=== PATIENT | female | born 1955 | race Caucasian/White ===

== ENCOUNTER → 2016-05-27 | Outpatient (CLI) | payer MEDICARE, MEDICAID ==
[2016-05-27 12:44] LABS: ALBUMIN 3.1 GM/DL (3.2-5.2); ALBUMIN/GLOBULIN RATIO 0.7 (1.00-1.93); BILIRUBIN,DIRECT 0.1 MG/DL (0.0-0.2); BILIRUBIN,TOTAL 0.4 MG/DL (0.2-1.0); TOTAL PROTEIN 7.5 GM/DL (6.4-8.2)
== END ==
LOC: M LAB 10:14
PROVIDERS: ATTEND Nurse Practitioner
DX: G40.909 Epilepsy, unspecified, not intractable, without status epilepticus (principal)

== ENCOUNTER → 2016-07-31 | Outpatient (CLI) | payer MEDICARE, MEDICAID ==
[~2016-07-31] MED LIST: AQUAOIN2 TOP; ATIV1TAB10 PO; BLISOIN5 TOP; CETACRE4 TOP; DIAZ2.5G PR; E-Z PAQUE 60% w/v SUSP 355ML BOTTLE As Ordered ONE; E-Z-HD 98% w/w 340GM SUSP BTL As Ordered ONE; ERYT5OPO OU; LAMI1TAB7 PO; LAMI25TA PO; LEVO88TA3 PO; MELA1LIQ2 PO; MELA1TAB PO; MULT1CHW39 PO; NITR100C2 PO; NYST100024 TOP; SENN8.6T17 PO; SILV1CRE19 TOP; VITMTA PO; ZONI100C2 PO; ZONI25CA2 PO
--- NOTE | 2016-07-31 13:35 | REP ---
ESOPHAGRAM: The procedure was performed under the direct supervision of Dr. Perdomo. The images were reviewed with Dr. Perdomo. Liquid barium was administered in the right lateral recumbent position. The exam is limited due to patient condition. The cervical esophagus is not well visualized. However, the patient was able to readily swallow the contrast. Esophageal transport is prompt and efficient and there is no evidence of esophagitis, stricture, mucosal ring or hiatal hernia. There is no evidence of obstruction. Gastroesophageal reflux is not demonstrated on this examination. IMPRESSION: The exam is limited due patient condition, however, there is free flow of contrast into the stomach. There is no evidence of stricture or obstruction. These findings were relayed to Dr. Brenner at the time of the examination. 58 seconds of fluoroscopy time was utilized for this procedure. Reviewed by HAYLEY Kennedy 07/31/2016 04:27 PEdited and Signed by Jean Perdomo MD 07/31/2016 04:49 P
== END ==
LOC: M RAD 10:26
PROVIDERS: ATTEND Otolaryngology
DX: R13.10 Dysphagia, unspecified (principal)

== ENCOUNTER 2016-08-04 06:12 | Emergency (ER) | payer MEDICARE, MEDICAID ==
[2016-08-04 06:39] LABS: BASO # 0.1 K/mm3 (0.0-0.2); BASO % 1.5 % (0.0-1.0); EOS # 0.2 K/mm3 (0.0-0.50); EOS % 5.1 % (0.0-3.0); LARGE UNSTAINED CELL # 0.2 K/mm3 (0.0-0.4); LARGE UNSTAINED CELL % 3.5 % (0.0-4.0); LYMPH # 1.5 K/mm3 (1.5-4.5); LYMPH % 34.3 % (24.0-44.0); MEAN CORPUSCULAR HEMOGLOBIN 34.4 pg (27.0-33.0); MEAN CORPUSCULAR HGB CONC 33.5 g/dl (32.0-36.5); MEAN CORPUSCULAR VOLUME 102.8 fl (80.0-96.0); MONO # 0.3 K/mm3 (0.0-0.8); MONO % 5.7 % (0.0-5.0); NEUTROPHILS # 2.2 K/mm3 (1.8-7.7); NEUTROPHILS % 49.8 % (36.0-66.0); PLATELET COUNT, AUTOMATED 236 k/mm3 (150-450); RED CELL DISTRIBUTION WIDTH 13.2 % (11.5-14.5); WHITE BLOOD COUNT 4.5 K/mm3 (4.0-10.0)
[2016-08-04] MEDS ORDERED: NS 1,000 ML IV ONE ×2 (06:45→07:15)
[2016-08-04 06:49] LABS: ABG BASE EXCESS -1.3 (-2.0-2.0); ABG HCO3 22.3 MEQ/L (22.0-26.0); ABG PARTIAL PRESSURE CO2 34.4 mmHg (35.0-45.0); ABG PARTIAL PRESSURE O2 86.1 mmHg (75.0-100.0); ABG STANDARD HCO3 23.4 MEQ/L (22.0-26.0); ABG TOTAL CO2 23.3 MEQ/L (22.0-29.0); ABG pH (ARTERIAL) 7.429 UNITS (7.350-7.450)
[2016-08-04] MEDS ORDERED: ZONI100C2 PO (06:58)
[2016-08-04] MEDS ORDERED: ATIV1TAB10 PO ×2 (06:58)
[2016-08-04] MEDS ORDERED: LEVO88TA3 PO (06:58)
[2016-08-04] MEDS ORDERED: LAMI25TA PO (06:58)
[2016-08-04] MEDS ORDERED: MULT1CHW39 PO (06:58)
[2016-08-04] MEDS ORDERED: MELA1LIQ2 PO (06:58)
[2016-08-04] MEDS ORDERED: LAMI1TAB7 PO (06:58)
[2016-08-04 07:01] LABS: ALBUMIN 2.8 GM/DL (3.2-5.2); ALBUMIN/GLOBULIN RATIO 0.67 (1.00-1.93); BILIRUBIN,DIRECT 0.2 MG/DL (0.0-0.2); BILIRUBIN,TOTAL 0.4 MG/DL (0.2-1.0); CALCIUM LEVEL 8.4 MG/DL (8.5-10.1); CREATININE FOR GFR 1.35 MG/DL (0.55-1.02); GLOMERULAR FILTRATION RATE 42.7 (>51); POTASSIUM SERUM 4.7 MEQ/L (3.5-5.1)
--- NOTE | 2016-08-04 07:10 | REPUSA ---
CLINICAL HISTORY: Altered mental status. TECHNIQUE: Multiple axial CT images were obtained through the brain without IV contrast material. COMMENTS: Comparison to the prior exam performed on 07/12/2012. There is normal configuration of sella turcica. There are no intra or extra-axial collections. There is no mass effect or midline shift. There is no evidence of hematoma formation. No hydrocephalus is p resent. The ventricles are symmetrical. No abnormal calcifications are present. There is diffuse age-appropriate cerebellar and cerebral atrophy with proportionally dilated ventricl es and cortical sulci. There are bilateral periventricular and subcortical white matter hypolucencies compatible with mild c hronic microvascular disease. Otherwise, no significant focal abnormalities are seen either in the posterior fossa or supratentoria l compartment. Small effusion in the right medial cavity and mastoid air cells. IMPRESSION: 1. Age-appropriate cerebellar and cerebral atrophy. 2. Mild chronic microvascular disease. 3. No evidence of acute intracranial pathology. Thank you for your kind referral of this patient.
[2016-08-04] MEDS ORDERED: LORazepam 2 MG/ML VIAL (J2060) IV STA (07:45)
--- NOTE | 2016-08-04 07:46 | REP ---
Clinical: Altered mental status . Comparison: 05/07/2015 . Findings: The mediastinum and cardiac silhouette are stable and within normal limits for portable technique. The lung flores demonstrate chronic changes without acute consolidation, effusion, or pneumothorax. Skeletal structures are intact. Impression: Chronic changes. No acute cardiopulmonary process. The Signed by Mele Layne MD 08/04/2016 07:37 A
[2016-08-04 08:20] VITALS: BP 128/83
[2016-08-04] MEDS ORDERED: ZONI25CA2 PO (08:28)
[2016-08-04] MEDS ORDERED: VITMTA PO (08:28)
[2016-08-04] MEDS ORDERED: DIAZ2.5G PR (08:28)
[2016-08-04] MEDS ORDERED: BLISOIN5 TOP (08:28)
[2016-08-04] MEDS ORDERED: SILV1CRE19 TOP (08:28)
[2016-08-04] MEDS ORDERED: CETACRE4 TOP (08:28)
[2016-08-04] MEDS ORDERED: NYST100024 TOP (08:28)
[2016-08-04] MEDS ORDERED: MELA1TAB PO (08:28)
[2016-08-04] MEDS ORDERED: AQUAOIN2 TOP (08:28)
[2016-08-04] MEDS ORDERED: SENN8.6T17 PO (08:28)
[2016-08-04] MEDS ORDERED: ERYT5OPO OU (08:34)
[2016-08-04 08:37] LABS: METHADONE URINE NEGATIVE (NEGATIVE)
[2016-08-04] MEDS ORDERED: NITROFURANTOIN 50 MG CAP PO ONE (08:45)
[2016-08-04] MEDS ORDERED: NITR100C2 PO (09:08)
--- NOTE | 2016-08-04 10:40 | ECGEPIP ---
Stationary ECG Study [facility] - ED Test Date: 2016-08-04 Pat Name: KAROLINE FRANKLIN Department: Room: - Gender: F Fire Protection Engineer: UriosteguiB: 1955 Requested By: LITO Ware Order Number: [id number] Reading MD: Andrea Lopez Measurements Intervals [place] Rate: 65 P: 44 DC: 201 QRS: -50 QRSD: 93 T: 114 QT: 409 QTc: 427 Interpretive Statements SINUS RHYTHM LAD PATTERN CONSISTENT WITH PULMONARY DISEASE LEFT ANTERIOR FASCICULAR BLOCK PRWP NSTTW ABNORMALITIES SIMILAR TO 11/12/11 Electronically Signed On 08-04-2016 10:40:24 EDT by Andrea Lopez
== END 2016-08-04 09:47 | disposition home or self-care (01) ==
LOC: EDBD 06:12 → M ED 07:45
DX: R41.82 Altered mental status, unspecified (principal); N39.0 Urinary tract infection, site not specified; I44.4 Left anterior fascicular block; R94.31 Abnormal electrocardiogram [ECG] [EKG]; Q90.9 Down syndrome, unspecified; Z79.899 Other long term (current) drug therapy; Z88.8 Allergy status to other drugs, medicaments and biological substances; Z88.1 Allergy status to other antibiotic agents
CPT/HCPCS: 36415; 36600; 70450; 71010; 80048; 80076; 80175; 80306; 81001; 82550; 82553; 82803; 83605; 84443; 84484; 85025; 87040; 87088; 87186; 93005; 93041; 96361; 96374; 99285; J2060

== ENCOUNTER 2016-10-12 07:52 | Inpatient (IN) | payer MEDICARE, MEDICAID ==
[~2016-10-12] VITALS: Ht 157.5 cm; Wt 56.0 kg
[2016-10-12] VITALS (10 sets, daily range): BP systolic 56–123; BP diastolic 28–85
[~2016-10-12 07:52] MED LIST changes: -E-Z PAQUE 60% w/v SUSP 355ML BOTTLE As Ordered ONE; -E-Z-HD 98% w/w 340GM SUSP BTL As Ordered ONE
[2016-10-12] MEDS ORDERED: SUCCINYLCHOLINE INJ 200 MG/10 ML VIAL (J0330) IV STA (08:27)
[2016-10-12] MEDS ORDERED: ETOMIDATE INJ 20MG/10ML VIAL IV STA (08:27)
[2016-10-12] MEDS ORDERED: PROPOFOL 1,000 MG in APPROPRIATE DILUENT 1 EA IV SCH (08:30)
[2016-10-12] MEDS ORDERED: NS 1,000 ML IV ONE ×2 (08:30→13:45)
--- NOTE | 2016-10-12 08:36 | ECGEPIP ---
Stationary ECG Study [facility] - ED Test Date: 2016-10-12 Pat Name: KAROLINE FRANKLIN Department: Room: - Gender: F Retirement Administrator: : [id number] Requested By: PETE Christianson Order Number: [id number] Reading MD: Shelly Pena Measurements Intervals [place] Rate: 67 P: 68 ME: 207 QRS: -32 QRSD: 92 T: 102 QT: 404 QTc: 428 Interpretive Statements SINUS RHYTHM MARKED LEFT AXIS DEVIATION PATTERN CONSISTENT WITH PULMONARY DISEASE ST DEVIATION AND MODERATE T-WAVE ABNORMALITY, CONSIDER LATERAL ISCHEMIA Electronically Signed On 10-12-2016 8:36:46 EDT by Shelly Pena
--- NOTE | 2016-10-12 08:41 | REP ---
PORTABLE CHEST X-RAY: Single view. HISTORY: Evaluate endotracheal tube. FINDINGS: An endotracheal tube has been inserted into position at the level of the any. This should be withdrawn 2-3 cm. The lungs are symmetrically aerated however. Pleural angles are sharp. Heart is not enlarged. There is moderate gaseous distension of the stomach. Interstitial markings are prominent in the right base medially question right base infiltrate. IMPRESSION: ET tube just barely above the any. Recommend withdrawal 2-3 cm. Gastric distension. Question right base infiltrate. Signed by Jesus Gonsales MD 10/12/2016 12:57 P
[2016-10-12] MEDS ORDERED: PROPOFOL 1,000 MG/100 ML VIAL As Ordered ONE (08:43)
[2016-10-12 08:47] LABS: ABG BASE EXCESS -8.9 (-2.0-2.0); ABG HCO3 17.2 MEQ/L (22.0-26.0); ABG PARTIAL PRESSURE CO2 37.7 mmHg (35.0-45.0); ABG PARTIAL PRESSURE O2 60.4 mmHg (75.0-100.0); ABG STANDARD HCO3 17.2 MEQ/L (22.0-26.0); ABG TOTAL CO2 18.3 MEQ/L (23.0-31.0); ABG pH (ARTERIAL) 7.276 UNITS (7.350-7.450)
[2016-10-12 08:49] LABS: ALBUMIN 2.4 GM/DL (3.2-5.2); ALBUMIN/GLOBULIN RATIO 0.55 (1.00-1.93); ALKALINE PHOSPHATASE 87 U/L (45-117); ALT/SGPT 18 U/L (12-78); ANION GAP 7 MEQ/L (8-16); AST/SGOT 17 U/L (15-37); BILIRUBIN,DIRECT < 0.1 MG/DL (0.0-0.2); BILIRUBIN,TOTAL 0.2 MG/DL (0.2-1.0); BLOOD UREA NITROGEN 17 MG/DL (7-18); CALCIUM LEVEL 7.6 MG/DL (8.8-10.2); CARBON DIOXIDE LEVEL 23 MEQ/L (21-32); CHLORIDE LEVEL 112 MEQ/L (98-107); CREATININE FOR GFR 1.25 MG/DL (0.55-1.02); FREE T4 1.05 NG/DL (0.76-1.46); GLOMERULAR FILTRATION RATE 46.5 (>45); GLUCOSE, FASTING 140 MG/DL (80-110); POTASSIUM SERUM 4.3 MEQ/L (3.5-5.1); SODIUM LEVEL 142 MEQ/L (136-145); TOTAL PROTEIN 6.8 GM/DL (6.4-8.2)
[2016-10-12 08:54] LABS: INR 1.11
[2016-10-12] MEDS ORDERED: PIPERACILLIN/TAZOBACTAM SOD 3.375 GM in D5W MINI-BAG PLUS 50 ML IV ONE (09:00)
[2016-10-12 09:06] LABS: MEAN CORPUSCULAR HEMOGLOBIN 35.1 pg (27.0-33.0); MEAN CORPUSCULAR HGB CONC 32.9 g/dl (32.0-36.5); MEAN CORPUSCULAR VOLUME 106.6 fl (80.0-96.0); PLATELET COUNT, AUTOMATED 261 k/mm3 (150-450); RED CELL DISTRIBUTION WIDTH 13.4 % (11.5-14.5); WHITE BLOOD COUNT 8.2 K/mm3 (4.0-10.0)
[2016-10-12] MEDS ORDERED: REFRIGERATOR IV KEYS XX PRN (09:15)
[2016-10-12] MEDS ORDERED: MORPHINE 2 MG/ML 1ML SYRINGE IV PRN (09:15)
[2016-10-12] MEDS ORDERED: CETALOT8 TOP (09:21)
[2016-10-12 09:32] LABS: BASOPHILS 2 % (0-4); EOSINOPHILS 3 % (0-5)
[2016-10-12] MEDS ORDERED: CLON0.5T PO (09:34)
[2016-10-12] MEDS: MIDAZOLAM HCL 100 MG in D5W 80 ML IV SCH (10:00)
--- NOTE | 2016-10-12 10:02 | HPE ---
DATE OF ADMISSION: 10/12/2016 CRITICAL CARE HISTORY AND PHYSICAL CRITICAL CARE TIME: 1 hour, this excludes all procedures. HISTORY OF PRESENT ILLNESS: Danii is a resident of [facility] ([facility]) with mental retardation (MR) who presented to the emergency room after a possible aspiration event. Apparently, she had increased gurgling during eating this morning. She became unresponsive in the shower. On arrival of EMS, she was hypoxic down to 60% oxygen saturation. Attempts were made at noninvasive ventilation; however, the patient was unable to maintain an adequate oxygen saturation for any period of time. Therefore, intubation was performed by the emergency room physician on arrival. The patient has not had any history of recurrent pneumonias. Three months ago, she had a urinary tract infection were she presented with decreased responsiveness. She has a known seizure disorder. No other history is available at this time around the episode. Apparently, yesterday she was in her usual state of health. PAST MEDICAL HISTORY (significant for): 1. Seizure disorder. 2. Hypothyroidism. 3. No history of diabetes. 4. No history of recurrent aspirations. RAHUL MEDICATIONS (include): Aquaphor ointment topically twice a day - Blistex ointment topically four times a day - Cetaphil cream topically as directed - diazepam 5 mg MT as needed - Ativan 0.25 mg by mouth at bedtime and 0.5 mg as needed - Lamictal 100 mg by mouth at bedtime and 75 mg by mouth every morning - levothyroxine 88 mcg every morning - erythromycin eye drops as directed - melatonin 1 mg by mouth at bedtime - multivitamin 1 tablet by mouth daily - nitrofurantoin 100 mg by mouth every 12 hours - Nystatin powder as directed - Silvadene topically twice a day - senna 1 tablet by mouth daily - zonisamide 200 mg by mouth at bedtime and 50 mg in the morning ALLERGIES: - AMINOGLYCOSIDES - CLOTRIMAZOLE - HYDROCORTISONE - NEOMYCIN - POLYMYXIN B SOCIAL HISTORY: Resident of [facility]. Healthcare proxy sisters, Candace and Kit, a patient's bedside. Requesting no further intervention such as central lines. I have consulted social work. REVIEW OF SYSTEMS: Unobtainable. PHYSICAL EXAMINATION: Temperature is 97.6, pulse is 66, respiratory rate is 14, blood pressure is 120/67 with mean arterial pressure 84, and with oxygen saturation of 98% on 0.50 FIO2. General: The patient is sedate on mechanical ventilation. Pupils are pinpoint, but reactive. Mucous membranes are moist without lesions. Large 8.[address]. OG tube in place. The patient is hirsute. Neck: Supple. No tracheal deviation. Lymphs: No cervical, supraclavicular or axillary adenopathy. Cardiac: Distant S1, S2 with occasional ectopy. PMI is nondisplaced. I do not auscultate any abdominal bruits. Peripheral pulses are palpable at radial locations and symmetric. Pulmonary: Fairly clear to auscultation without rales, rhonchi or wheezes. No dullness to percussion. Chest elevates symmetric. No accessory muscle use. Abdomen: Soft, nontender, with no discernible hepatosplenomegaly. No masses or hernia. Extremities: No cyanosis, clubbing or edema. Musculoskeletal: No obvious deformities other than what is expected for MR. She has significant muscle wasting. No evidence of fracture. Neurologic: No myoclonus. No evidence of seizure activity while on mechanical ventilation. LABORATORY EVALUATION: Shows a white blood cell count 8.2, hemoglobin 13.8, hematocrit of 42, and platelet count 261. Sodium is 142, potassium 4.3, chloride 112, bicarb 23, BUN of 17, creatinine 1.25, lactic acid is 2.7. Arterial blood gas shows a pH 7.28, pCO2 of 38, and pO2 of 60. Chest x-ray initially showed a right mainstem intubation and endotracheal tube was moved back, since that time an OG tube has been placed. There is some minimal right lower lobe infiltrate. No evidence of pneumothorax or airway obstruction. EKG shows no significant ST abnormality, sinus rhythm. Telemetry, however, shows sinus arrhythmia with frequent premature ventricular contractions (PVCs). IMPRESSIONS: 1. Acute hypoxic respiratory failure likely from aspiration event. Will remain on mechanical ventilation. Will attempt extubation in the morning. Will place on Zosyn due to the aspiration event and the evidence of lactic acidemia, although this could be simply related to her hypoxic event. Will continue to monitor for signs of sepsis; however, despite some hypotension in the emergency room the patient's family refused placement of a central line. I have changed her propofol to Versed to avoid hypotension and will supply the patient with IV fluids. Upon leaving the room, her mean arterial pressure was 70. 2. Hypothyroidism. Replace with her usual Synthroid 88 mcg. 3. History of seizure disorder. Will continue zonisamide and Lamictil. Monitor for seizure activity. The patient will be on Versed drip. 4. Renal insufficiency, mild in nature. Will continue to monitor. The patient has good urine output at this point in time. 5. Gastrointestinal (GI) prophylaxis with Protonix. 6. Deep vein thrombosis (DVT) prophylaxis with heparin. Critical care time as mentioned above, this excludes all procedures.
[2016-10-12 10:44] LABS: ABG BASE EXCESS -7.5 (-2.0-2.0); ABG HCO3 18.2 MEQ/L (22.0-26.0); ABG PARTIAL PRESSURE CO2 37.6 mmHg (35.0-45.0); ABG STANDARD HCO3 18.4 MEQ/L (22.0-26.0); ABG TOTAL CO2 19.3 MEQ/L (23.0-31.0); ABG pH (ARTERIAL) 7.302 UNITS (7.350-7.450)
[2016-10-12 11:03] LABS: MAGNESIUM LEVEL 2.4 MG/DL (1.8-2.4)
[2016-10-12] MEDS: CHLORHEXIDINE GLUCONATE 0.12 % 15ML UDC (PERIDEX ORAL RINSE) MT SCH ×2 (11:16→20:57)
[2016-10-12] MEDS: ENOXAPARIN 30 MG/0.3 ML SYR (J1650) SC SCH (11:17)
[2016-10-12] MEDS: NYSTATIN 100,000 UNITS/GM TOPICAL PWD 15 GM TOP SCH ×2 (11:17→20:58)
[2016-10-12] MEDS: PANTOPRAZOLE 40MG INJ (PROTONIX) (C9113) IV SCH (11:17)
[2016-10-12] MEDS: LEVOTHYROXINE 0.088 MG TAB (88 MCG) PO SCH (11:34)
[2016-10-12] MEDS ORDERED: SODIUM CHLORIDE 0.9% 1000 ML IV ONE (11:45)
[2016-10-12] MEDS: IPRATROPIUM 0.5MG/ALBUTEROL 2.5MG INH SOL UD 3ML (DUONEB)(J7620) NEB SCH ×3 (12:00→19:56)
[2016-10-12] MEDS: PIPERACILLIN/TAZOBACTAM SOD 3.375 GM in D5W MINI-BAG PLUS 50 ML IV SCH ×2 (16:14→20:58)
[2016-10-12] MEDS: ZONISAMIDE 100 MG CAP (ZONEGRAN) PO SCH (20:58)
[2016-10-12] MEDS: ZONISAMIDE 50 MG CAP (ZONEGRAN) PO SCH (20:58)
[2016-10-12] MEDS ORDERED: lamoTRIgine 100MG TAB PO SCH (21:00)
[2016-10-13] VITALS (40 sets, daily range): BP systolic 56–134; BP diastolic 32–72
[2016-10-13] MEDS ORDERED: SUCCINYLCHOLINE 100 MG/5 ML SYRINGE (J0330) ONE (00:34)
[2016-10-13] MEDS ORDERED: ETOMIDATE INJ 20MG/10ML VIAL ONE (00:34)
[2016-10-13] MEDS ORDERED: NS 1,000 ML IV ONE ×3 (02:00→04:30)
[2016-10-13] MEDS: PIPERACILLIN/TAZOBACTAM SOD 3.375 GM in D5W MINI-BAG PLUS 50 ML IV SCH ×4 (04:08→20:22)
[2016-10-13 06:07] LABS: ABG BASE EXCESS -7.6 (-2.0-2.0); ABG HCO3 15.8 MEQ/L (22.0-26.0); ABG PARTIAL PRESSURE CO2 26.9 mmHg (35.0-45.0); ABG PARTIAL PRESSURE O2 185.8 mmHg (75.0-100.0); ABG STANDARD HCO3 18.4 MEQ/L (22.0-26.0); ABG TOTAL CO2 16.7 MEQ/L (23.0-31.0); ABG pH (ARTERIAL) 7.388 UNITS (7.350-7.450)
[2016-10-13] MEDS: LEVOTHYROXINE 0.088 MG TAB (88 MCG) PO SCH (06:09)
[2016-10-13 06:23] LABS: MEAN CORPUSCULAR HEMOGLOBIN 35.1 pg (27.0-33.0); MEAN CORPUSCULAR HGB CONC 32.7 g/dl (32.0-36.5); MEAN CORPUSCULAR VOLUME 107.3 fl (80.0-96.0); RED CELL DISTRIBUTION WIDTH 13.2 % (11.5-14.5); WHITE BLOOD COUNT 12.2 K/mm3 (4.0-10.0)
[2016-10-13 06:44] LABS: ALBUMIN 1.6 GM/DL (3.2-5.2); ALBUMIN/GLOBULIN RATIO 0.48 (1.00-1.93); BILIRUBIN,TOTAL 0.7 MG/DL (0.2-1.0); CALCIUM LEVEL 6.8 MG/DL (8.8-10.2); CREATININE FOR GFR 1.25 MG/DL (0.55-1.02); GLOMERULAR FILTRATION RATE 46.5 (>45); POTASSIUM SERUM 3.9 MEQ/L (3.5-5.1); TOTAL PROTEIN 4.9 GM/DL (6.4-8.2)
[2016-10-13] MEDS: IPRATROPIUM 0.5MG/ALBUTEROL 2.5MG INH SOL UD 3ML (DUONEB)(J7620) NEB SCH ×4 (07:42→19:28)
--- NOTE | 2016-10-13 08:46 | REP ---
Portable chest x-ray: Single view. History: Respiratory failure. Comparison chest x-ray October 12, 2016. Findings: The patient is rotated quite a bit to the right for the current exposure. A nasogastric tube has been passed and is seen entering the left upper quadrant of the abdomen. The endotracheal tube is in good position at the level of the transverse aorta. EKG monitoring electrodes and oxygen delivery tubing are seen. There is evidence of an infiltrate perhaps with some atelectasis in the right middle lobe distribution. This is more prominent than on the earlier film. No pleural effusion or pneumothorax seen. Heart is not enlarged. There are also air bronchograms in the left base medially. Impression: Developing infiltrate possibly with atelectasis right middle lobe. Air bronchograms left base. Endotracheal tube in good position. NG tube enters left upper quadrant of the abdomen. Signed by Jesus Gonsales MD 10/13/2016 02:49 P
[2016-10-13] MEDS ORDERED: lamoTRIgine 25 MG TAB PO SCH (09:00)
[2016-10-13] MEDS: MIDAZOLAM HCL 100 MG in D5W 80 ML IV SCH (09:12)
[2016-10-13] MEDS: NYSTATIN 100,000 UNITS/GM TOPICAL PWD 15 GM TOP SCH ×2 (09:27→20:23)
[2016-10-13] MEDS: PANTOPRAZOLE 40MG INJ (PROTONIX) (C9113) IV SCH (09:27)
[2016-10-13] MEDS: ENOXAPARIN 30 MG/0.3 ML SYR (J1650) SC SCH (09:27)
[2016-10-13] MEDS: CHLORHEXIDINE GLUCONATE 0.12 % 15ML UDC (PERIDEX ORAL RINSE) MT SCH ×2 (09:28→20:21)
--- NOTE | 2016-10-13 10:42 | CCN ---
DATE: 10/13/2016 Critical care time was 1 hour. This excludes all procedures. I was called to the patient's bedside for persistent hypotension. She has received multiple normal saline boluses over the past 24 hours. She continues to be hypotensive despite this. Family has declined participating with our sepsis protocol. They do not want any central line placement, any vasopressor therapy, no escalation or resuscitation other than the IV antibiotics, fluids and a trial of mechanical ventilation. She remains on mechanical ventilation. This morning she has a worsening acidemia however, is oxygenating well at 99% on 0.70 FiO2. A discussion at bedside, it was deemed that the patient's family wanted to try a little longer to see if she recovers from this but do not want cardiopulmonary resuscitation (CPR), do not want any aggressive measures and they do not want a G-tube for artificial feeding. However, believe that it is okay to have temporary feeds through the orogastric (OG) tube to support the patient through this process. I believe the patient was septic with aspiration pneumonia. The patient continues to have adequate urine output. PHYSICAL EXAMINATION: Temperature is 99.1, pulse is 74, respiratory rate is 18, blood pressure is 96/56 with an oxygen saturation on 0.70 FiO2. General: The patient is sedated on mechanical ventilation. Has not yet had her sedation vacation this morning. Pupils are 4 mm but reactive to light. Mucous membranes are moist. Tongue is midline. Neck is supple. No tracheal deviation or mass. Endotracheal tube is in place. Breath sounds clear bilaterally. No rales, rhonchi or wheezes. No dullness to percussion. Cardiac: Distant S1, S2 without audible murmur, rub or gallop. No elevated JVP. No systemic edema. Abdomen: Soft, nontender, nondistended, no hepatosplenomegaly. No masses or hernia. Extremities: No cyanosis, clubbing or edema. Skin is pale. No rashes, jaundice or bruising. Chest x-ray this morning shows right middle lobe infiltrate. Endotracheal tube is in good position. OG tube does enter the left upper quadrant. There is significant curvature of the spine. No evidence of pneumothorax. No significant pleural effusion. There is some displacement of the cardiac silhouette with some rotation of the film. Laboratory evaluation shows a white blood cell count of 12.2, hemoglobin 11.4, hematocrit 34.8 with a platelet count of 202. Sodium is 147, potassium is 3.9, chloride 120, bicarb is down to 19, BUN is 16, creatinine is 1.25. Blood cultures times one, no growth but the second blood culture is pending. 1. Respiratory failure currently on mechanical ventilation. Arterial blood gas suggests compensated metabolic acidosis. Will continue mechanical ventilation until acidosis improves or her family feels that it is too prolonged. She will have a sedation vacation this morning. She is on ventilator associated pneumonia prevention. 2. Aspiration pneumonia with ongoing sepsis and hypotension. I recommended continuing IV fluids. She has good urine output with no change in her BUN and creatinine over the past 24 hours. Will accept a mean arterial pressure of 60 as long as her urine output remains greater than 15 mL an hour. 3. History of seizure disorder. Will continue Lamictal and zonisamide. 4. GI prophylaxis on Protonix. 5. Deep venous thrombosis (DVT) prophylaxis with heparin. 6. Nutrition: Will initiate low dose tube feeds with free water due to hypernatremia.
[2016-10-13] MEDS ORDERED: lamoTRIgine 100MG TAB PO ONE (20:00)
[2016-10-13] MEDS: ZONISAMIDE 50 MG CAP (ZONEGRAN) PO SCH ×2 (20:22→21:43)
[2016-10-13] MEDS: ZONISAMIDE 100 MG CAP (ZONEGRAN) PO SCH ×2 (20:22→21:43)
[2016-10-13] MEDS: LORazepam 2 MG/ML VIAL (J2060) IV PRN ×2 (20:44→21:59)
[2016-10-13] MEDS ORDERED: PROPOFOL 1,000 MG/100 ML VIAL As Ordered ONE (20:48)
[2016-10-13] MEDS ORDERED: PROPOFOL 1,000 MG in APPROPRIATE DILUENT 1 EA IV SCH (21:00)
[2016-10-13] MEDS ORDERED: levETIRAcetam INJection 500 MG in D5W MINI-BAG PLUS 100 ML IV SCH (21:00)
--- NOTE | 2016-10-13 21:41 | CCN ---
DATE: 10/13/2016 This is an additional hour of critical care after this morning's critical care. I was urgently called to the bedside of this patient for increased myoclonus. On my arrival, patient had full body myoclonus. This improved with the administration of Ativan. Patient has a known seizure disorder and has been having full body myoclonus with extension of the upper back, some eye rolling movements and, when I plantar flex her foot, she had continuous beats of myoclonus. She did have a period of anoxia prior to her arrival to the emergency room and therefore, I consulted neurology. Neurology suggests to do a CT scan of the head to look for anoxic brain injury. Will perform an electroencephalogram (EEG) tomorrow. Initially, recommended loading with Keppra; however, patient's family stated that she adversely reacts to this medication and refused the administration of Keppra. At this point in time, we will control seizure activity with benzodiazepines. Overall, this may be a additional poor prognostic sign. Seizure activity may be secondary to acute illness and infection, but may also be secondary to anoxic brain injury. According to the sister, the patient has had increased myoclonus over the past year. It seems to be progressive in nature. Will await the results of the CT scan. Critical care time as mentioned above. This excludes all procedures. I was at patient's bedside for over an hour.
[2016-10-13] MEDS: lamoTRIgine 100MG TAB PO SCH (21:43)
[2016-10-13] MEDS ORDERED: ISOVUE-370 76% 100ML VIAL (Q9967) As Ordered ONE (22:01)
--- NOTE | 2016-10-13 23:00 | REPUSA ---
CT of the head Clinical history: seizures. Protocol: Multiple axial CT images obtained with 5 mm slice thickness were obtained through the head before and after administration of contrast. Comparison: 08/04/2016. Findings: The ventricles and sulci are symmetric but severely dilated in size bilaterally. There are periventricular areas of low attenuation throughout the deep white matter. There is no evidence of ac artie hemorrhage or infarct. There is no midline shift, mass effect, or extra-axial fluid collection. T he osseous structures are unremarkable. The visualized paranasal sinuses and mastoid air cells are cl ear. There are no abnormal areas of enhancement. Impression: No acute hemorrhage or infarct. Findings are consistent with severe age-related atrophy a nd chronic small vessel ischemic disease. Overall, there is no significant interval change.
[2016-10-14] VITALS (26 sets, daily range): BP systolic 84–119; BP diastolic 47–66; O2SAT 96–97
[2016-10-14] MEDS: PIPERACILLIN/TAZOBACTAM SOD 3.375 GM in D5W MINI-BAG PLUS 50 ML IV SCH ×4 (02:12→21:45)
[2016-10-14] MEDS: MIDAZOLAM HCL 100 MG in D5W 80 ML IV SCH ×2 (02:12→13:00)
[2016-10-14 05:01] LABS: MEAN CORPUSCULAR HEMOGLOBIN 36.1 pg (27.0-33.0); MEAN CORPUSCULAR HGB CONC 33.7 g/dl (32.0-36.5); MEAN CORPUSCULAR VOLUME 106.9 fl (80.0-96.0); RED CELL DISTRIBUTION WIDTH 13.6 % (11.5-14.5); WHITE BLOOD COUNT 9.8 K/mm3 (4.0-10.0)
[2016-10-14 05:22] LABS: ALBUMIN 1.8 GM/DL (3.2-5.2); ALBUMIN/GLOBULIN RATIO 0.51 (1.00-1.93); BILIRUBIN,TOTAL 0.5 MG/DL (0.2-1.0); CALCIUM LEVEL 6.9 MG/DL (8.8-10.2); CREATININE FOR GFR 1.04 MG/DL (0.55-1.02); GLOMERULAR FILTRATION RATE 57.5 (>45); POTASSIUM SERUM 3.3 MEQ/L (3.5-5.1); TOTAL PROTEIN 5.3 GM/DL (6.4-8.2)
[2016-10-14 05:28] LABS: ABG BASE EXCESS -5.6 (-2.0-2.0); ABG HCO3 18.5 MEQ/L (22.0-26.0); ABG PARTIAL PRESSURE O2 69.6 mmHg (75.0-100.0); ABG STANDARD HCO3 19.8 MEQ/L (22.0-26.0); ABG TOTAL CO2 19.5 MEQ/L (23.0-31.0); ABG pH (ARTERIAL) 7.381 UNITS (7.350-7.450)
[2016-10-14] MEDS: LEVOTHYROXINE 0.088 MG TAB (88 MCG) PO SCH (05:44)
[2016-10-14] MEDS: IPRATROPIUM 0.5MG/ALBUTEROL 2.5MG INH SOL UD 3ML (DUONEB)(J7620) NEB SCH ×4 (07:34→19:46)
[2016-10-14] MEDS: CHLORHEXIDINE GLUCONATE 0.12 % 15ML UDC (PERIDEX ORAL RINSE) MT SCH ×2 (08:03→21:48)
[2016-10-14] MEDS: PANTOPRAZOLE 40MG INJ (PROTONIX) (C9113) IV SCH (08:03)
[2016-10-14] MEDS: ENOXAPARIN 30 MG/0.3 ML SYR (J1650) SC SCH (08:03)
[2016-10-14] MEDS: lamoTRIgine 25 MG TAB PO SCH (08:03)
[2016-10-14] MEDS: NYSTATIN 100,000 UNITS/GM TOPICAL PWD 15 GM TOP SCH ×2 (08:04→21:48)
[2016-10-14] MEDS ORDERED: lamoTRIgine 100MG TAB PO SCH (09:00)
--- NOTE | 2016-10-14 09:30 | REP ---
Portable chest x-ray: Sitting AP view. History: Respiratory failure. Comparison study: October 13, 2016. Findings: Endotracheal tube remains in good position. NG tube enters the left upper quadrant of the abdomen. EKG monitoring electrodes are seen. There is progressive opacification and some volume loss in the right lower lobe of the lung. The right hemidiaphragm is obscured. Right heart border is preserved. There are air bronchograms. There are a few increased markings in the left base medially overlying the left heart border. These are unchanged. Impression: Progressive consolidation and collapse of right lower lobe. Signed by Jesus Gonsales MD 10/14/2016 01:32 P
--- NOTE | 2016-10-14 12:30 | CCN ---
DATE: 10/14/2016 Critical care time was 49 minutes. This excludes all procedures. On arrival to the patient's room today, sisters are in accompaniment. They have multiple questions that I have answered. The patient continues to have intermittent myoclonus, especially when benzodiazepine is lifted. Neurology has been consulted. CT scan from yesterday did not show any significant change from her chronic abnormalities. This morning she remains less hypotensive, renal function is good and arterial blood gas is adequate. I will decrease sedation and monitor for seizure activity. If she does well without seizure activity, we will consider spontaneous breathing trial and extubation. If she has continuous seizing, we will again apply benzodiazepine therapy and wait for a neurology consultation that will be performed today. PHYSICAL EXAMINATION: Temperature is 98.4, pulse is 88, respiratory rate is 21, blood pressure is 95/51 with a mean arterial pressure is 66, oxygen saturations 97% on 0.35. GENERAL: Sedated and is not opening eyes. On sedation vacation this morning had increased myoclonus. HEENT: Sclerae clear and anicteric. Pupils equal, react to light. Mucous membranes moist without lesions. Tongue is midline. Neck is supple. No tracheal deviation or mass. No elevated jugular venous pressure. LUNGS: Clear to auscultation without rales, rhonchi or wheezes. No dullness to percussion. CARDIAC: Regular S1, S2 without audible murmur or gallop. No elevated jugular venous pressure. ABDOMEN: Soft, nontender, nondistended. No hepatosplenomegaly. No masses or hernia. EXTREMITIES: No cyanosis, clubbing or edema. SKIN: No rashes, jaundice or bruising. Chest x-ray shows right middle lobe infiltrate. No other concerns. Endotracheal tube in good position. Arterial blood gas shows a pH 7.38, pCO2 of 32, pAO2 of 69. Sodium is 143, potassium is 3.3, chloride is 116, bicarbonate is 20, BUN is 14, creatinine is 1.04, glucose is 134, white blood cell count is 9.8 with a hemoglobin 11.2, platelet count of 169, calcium is 6.9, albumin of 1.8. IMPRESSION: 1. Respiratory failure, likely secondary to aspiration event. Respiratory aguayo, may be ready for extubation; however, neurologic status is in question. We will attempt sedation vacation and monitor for seizure activity. If the patient continues to have seizure activity, we will again apply benzodiazepine therapy. We will perform an EEG today. 2. Seizure disorder with increased myoclonus. We will perform EEG today. CT scan as mentioned above. No significant changes. There is some question of anoxic event prior to her arrival here. 3. Malnourishment. We will continue tube feeds, either when the patient is resedated and extubation is not in the plans or after she is awake and extubated and can tolerate feeding. 4. Gastrointestinal prophylaxis. On Protonix. 5. Deep vein thrombosis (DVT) prophylaxis. On heparin.
[2016-10-14] MEDS ORDERED: POTASSIUM CHL PWD 20 MEQ PACKET PO ONE (15:00)
[2016-10-14] MEDS ORDERED: MIDAZOLAM INJ 2 MG/2 ML VIAL (J2250) IV PRN (16:45)
[2016-10-14] MEDS: D5W/0.45% SODIUM CHLORIDE 1,000 ML IV SCH (19:19)
--- NOTE | 2016-10-14 19:43 | REP ---
MR BRAIN WITHOUT AND WITH CONTRAST: HISTORY: Seizure. COMPARISON: CT 10/13/2016. Areas of increased signal intensity on T2 weighted images are present in the periventricular and subcortical white matter. This represents small vessel ischemic disease. There is no intraparenchymal hemorrhage, acute infarct, mass or midline shift. The sella turcica is partially empty. There is no abnormal enhancement. The ventricular system and cortical sulci as well as subarachnoid space and the posterior fossa are dilated consistent with moderate volume loss. There is no extracerebral collection. Mucosal thickening is present in the middle ear cavities and mastoid air cells. IMPRESSION:1. Small vessel ischemic disease. 2. Moderate volume loss. Signed by Arnel Almeida MD 10/14/2016 07:45 P
[2016-10-14] MEDS: lamoTRIgine 100MG TAB PO SCH (21:48)
[2016-10-14] MEDS: ZONISAMIDE 50 MG CAP (ZONEGRAN) PO SCH (21:48)
[2016-10-14] MEDS: ZONISAMIDE 100 MG CAP (ZONEGRAN) PO SCH (21:48)
[2016-10-15] VITALS (13 sets, daily range): BP systolic 82–136; BP diastolic 46–76
[2016-10-15] MEDS: PIPERACILLIN/TAZOBACTAM SOD 3.375 GM in D5W MINI-BAG PLUS 50 ML IV SCH ×2 (02:53→08:12)
[2016-10-15 04:44] LABS: MEAN CORPUSCULAR HEMOGLOBIN 36.1 pg (27.0-33.0); MEAN CORPUSCULAR VOLUME 105.9 fl (80.0-96.0); RED CELL DISTRIBUTION WIDTH 13.8 % (11.5-14.5); WHITE BLOOD COUNT 5.9 K/mm3 (4.0-10.0)
[2016-10-15 05:04] LABS: ALBUMIN 1.7 GM/DL (3.2-5.2); ALBUMIN/GLOBULIN RATIO 0.45 (1.00-1.93); ALKALINE PHOSPHATASE 94 U/L (45-117); ALT/SGPT 13 U/L (12-78); ANION GAP 7 MEQ/L (8-16); AST/SGOT 15 U/L (15-37); BILIRUBIN,TOTAL 0.6 MG/DL (0.2-1.0); BLOOD UREA NITROGEN 9 MG/DL (7-18); CALCIUM LEVEL 7.3 MG/DL (8.8-10.2); CARBON DIOXIDE LEVEL 21 MEQ/L (21-32); CHLORIDE LEVEL 115 MEQ/L (98-107); CREATININE FOR GFR 0.94 MG/DL (0.55-1.02); GLOMERULAR FILTRATION RATE > 60.0 (>45); GLUCOSE, FASTING 138 MG/DL (80-110); POTASSIUM SERUM 3.3 MEQ/L (3.5-5.1); SODIUM LEVEL 143 MEQ/L (136-145); TOTAL PROTEIN 5.5 GM/DL (6.4-8.2)
[2016-10-15] MEDS: LEVOTHYROXINE 0.088 MG TAB (88 MCG) PO SCH (06:02)
[2016-10-15 06:13] LABS: ABG BASE EXCESS -3.4 (-2.0-2.0); ABG HCO3 20.6 MEQ/L (22.0-26.0); ABG PARTIAL PRESSURE CO2 33.7 mmHg (35.0-45.0); ABG PARTIAL PRESSURE O2 101.1 mmHg (75.0-100.0); ABG STANDARD HCO3 21.6 MEQ/L (22.0-26.0); ABG TOTAL CO2 21.7 MEQ/L (23.0-31.0); ABG pH (ARTERIAL) 7.405 UNITS (7.350-7.450)
[2016-10-15] MEDS: IPRATROPIUM 0.5MG/ALBUTEROL 2.5MG INH SOL UD 3ML (DUONEB)(J7620) NEB SCH (07:50)
[2016-10-15] MEDS: D5W/0.45% SODIUM CHLORIDE 1,000 ML IV SCH (07:57)
[2016-10-15] MEDS: CHLORHEXIDINE GLUCONATE 0.12 % 15ML UDC (PERIDEX ORAL RINSE) MT SCH (08:02)
[2016-10-15] MEDS: ENOXAPARIN 30 MG/0.3 ML SYR (J1650) SC SCH (08:03)
[2016-10-15] MEDS: lamoTRIgine 25 MG TAB PO SCH (08:03)
[2016-10-15] MEDS: PANTOPRAZOLE 40MG INJ (PROTONIX) (C9113) IV SCH (08:12)
[2016-10-15] MEDS: NYSTATIN 100,000 UNITS/GM TOPICAL PWD 15 GM TOP SCH ×2 (08:12→21:00)
--- NOTE | 2016-10-15 08:43 | CCN ---
DATE: 10/15/2016 Critical care time: 51 minutes. This excludes all procedures. I was called this morning for heavy Methicillin-resistant staphylococcus aureus (MRSA) growth in the sputum. She also had heavy Klebsiella growth in the sputum and heavy strep agalactiae in the sputum. She has been having copious amounts of secretions from endotracheal suctioning. She has had less evidence of myoclonic activity, although there is some at baseline. Appreciate neurology's recommendations from yesterday. MRI of the brain does not show any new lesions. It simply shows small vessel ischemia and moderate volume loss which is a chronic abnormality. The patient is starting to open her eyes this morning. I have shut her tube feeds off and placed her on pressure support 5/5 for spontaneous breathing trial with expectations for a trial of extubation today. PHYSICAL EXAMINATION: Temperature is 97.9, pulse is 67, respiratory rate is 18, blood pressure is 99/56 with a mean arterial pressure of 70, oxygen saturations 96% on 0.35 FiO2. Input and output is 1416 in, 496 out for net positive 920. General: The patient is partially sedated on mechanical ventilation starting to open her eyes. She does have a cough reflex. She will shake her extremities when agitated. No purposeful movements however. I am not sure she has any purposeful movements at baseline. HEENT: Sclerae clear and anicteric. Pupils are 4 mm and reactive to light. Mucous membranes are moist. Tongue is large without lesions. Mallampati 4. Neck: Supple. No tracheal deviation. No elevated JVP. Cardiac: Regular S1, S2 without audible murmur, rub or gallop. No elevated JVP. No lower extremity edema. She does have some arm edema bilaterally which is symmetric. She also has sacral edema. Pulmonary: Diffuse rhonchi. However, after suctioning, there is much less rhonchi. No expiratory wheeze. No prolongation of the expiratory phase. No dullness to percussion. There is no evidence of accessory muscle use. There is increased tactile fremitus at the right base. Abdomen: Soft, nontender, nondistended. No discernible hepatosplenomegaly. No masses or hernia. Extremities: Edema as mentioned above. No cyanosis. Thromboembolic deterrent stockings (TEDS) and Jamari's are in place. Muscular: Chronic muscle wasting without significant evidence of fracture or effusion. Neurologic: Continues to have myoclonus as mentioned above. However, much less prominent. No further eye rolling activity noticed. No vertical nystagmus. No obvious grand mal seizure activity. Laboratory evaluation shows sputum culture as mentioned above. Heavy Klebsiella, heavy Methicillin-resistant staphylococcus aureus (MRSA), heavy strep agalactiae. The strep and Methicillin-resistant staphylococcus aureus (MRSA) are sensitive to vancomycin. Klebsiella sensitive to Zosyn which she has been on. White blood cell count is 5.9, hemoglobin 11.0, hematocrit 32.4 with a platelet count 158. Sodium is 143, potassium is again low at 3.3, chloride is 115, bicarb is 21, BUN is 9, creatinine of 0.94. Arterial blood gas shows a pH 7.41, pCO2 of 33.7, pAO2 of 101 Blood cultures have had no growth times two. MRI as described above. Chest x-ray shows right middle lobe, right lower lobe infiltrate. The right upper lobe and the entire left lung field are clear without evidence of infiltrate. There is no evidence of effusion. Endotracheal tube in good position. 1. Respiratory failure from pneumonia. Initially thought to be aspiration pneumonia, was covered with Zosyn, however now growing in addition to Klebsiella, heavy Methicillin-resistant staphylococcus aureus (MRSA) and heavy strep. Will add vancomycin to the regimen today. 2. Pneumonia. As above adding vancomycin, already on Zosyn. Recommend frequent suctioning prior to extubation trial. Continued mucociliary clearance techniques after extubation trial. 3. Seizure disorder. No obvious seizure activity currently on zonisamide and Lamictal. EEG is pending from yesterday. Appreciate neurology input. 4. Chronic malnourishment. The patient has been on low-dose tube feeds. Will initiate feeding when her respiratory status improves. 5. GI prophylaxis on Protonix. 6. Deep venous thrombosis (DVT) prophylaxis on Lovenox. Critical care time as mentioned above. This excludes all procedures.
--- NOTE | 2016-10-15 08:53 | REP ---
Portable chest x-ray: Single view. History: Respiratory failure. Comparison study October 14, 2016. Findings: Collapse and consolidation persist in the right lower lobe distribution. There is hazy opacity in the left base consistent with pleural fluid. Cardiomediastinal silhouette is unchanged. Endotracheal tube is seen with its tip only 11 mm above the any. NG tube enters the left upper quadrant. No new infiltrate is seen. Impression: Persistent collapse and consolidation pattern right lower lobe. Endotracheal tube tip is only 11 mm above the any. Small left pleural effusion. Signed by Jesus Gonsales MD 10/15/2016 10:18 A
[2016-10-15] MEDS ORDERED: VANCOMYCIN HCL 750 MG, VIAL MATE ADAPTER 1 EACH in D5W 250 ML IV ONE (10:00)
[2016-10-15] MEDS ORDERED: VANCOMYCIN HCL 500 MG in D5W MINI-BAG PLUS 100 ML IV ONE (11:00)
[2016-10-15] MEDS ORDERED: LORazepam 2 MG/ML VIAL (J2060) IV STA (11:06)
[2016-10-15] MEDS ORDERED: MORPHINE 4 MG/ML 1ML SYRINGE As Ordered ONE (11:08)
[2016-10-15] MEDS ORDERED: MORPHINE SULF IN 0.9% NACL 100 MG in APPROPRIATE DILUENT 1 EA IV SCH ×2 (11:11)
[2016-10-15] MEDS ORDERED: MORPHINE 4 MG/ML 1ML SYRINGE IV ONE ×2 (11:15→13:15)
[2016-10-15] MEDS ORDERED: ATROPINE SULFATE 1% OP SOLN 2 ML BTL SL PRN (11:15)
[2016-10-15] MEDS ORDERED: ACETAMINOPHEN 650 MG SUPP PR PRN (11:15)
[2016-10-15] MEDS ORDERED: SCOPOLAMINE 1.5 MG TRANSDERMAL TD PRN (11:15)
--- NOTE | 2016-10-15 11:31 | CCN ---
DATE: 10/15/2016 I was at the patient's bedside after extubation. It was determined extubation should be tried after the patient had been on pressure support for 5/5 for over 2 hours with good tidal volumes in the 400 range, no evidence of elevated shallow breathing index and on excellent oxygen saturation on 30% FIO2. On extubation, there was a lot of mucus secretions. These were suctioned. She had difficulty maintaining oxygen saturations due to mucociliary clearance. She had quite a bit of gargling. NG suctioning was performed. She is on 90% aerosol mask maintaining an oxygen saturation in the low 90s. Although her mentation was good initially prior to extubation, she is slightly more sedated and having visible tachypnea and difficulty with mucus clearance. The patient's family, all sisters and the identified guardians, have agreed that they would not want to see her suffer any more and that they do not want any mechanical ventilation and due to her respiratory distress wanted to convert to comfort measures. I had appealed to the state three days ago and have not had an answer yet as far as her code status. However, I believe it is in the best interest of the patient and it is with the wishes of the guardian and family that the patient remains comfort measures only. Therefore, I will follow their directives as I deem this appropriate for her current clinical state. I believe that if she were to be reintubated and extubated at a later date that she would likely have the same difficulty with secretions. It is not clear that she would be able to tolerate any type of feeding without aspirating as evidenced by Klebsiella in her sputum culture. The family absolutely refuses to even consider tube feeds. I therefore believe comfort measures only is the most reasonable and humane thing to do at this point in time.
[2016-10-15] MEDS ORDERED: EPIDURAL/PCA KEYS XX PRN (13:15)
[2016-10-15] MEDS: LORazepam 2 MG/ML VIAL (J2060) IV PRN ×2 (15:36→19:02)
[2016-10-15] MEDS ORDERED: SALIVA SUBSTITUTE(MOUTHKOTE) BTL MT PRN (18:15)
[2016-10-15] MEDS: MORPHINE SULF IN 0.9% NACL 100 MG in APPROPRIATE DILUENT 1 EA IV SCH ×2 (19:46)
[2016-10-15] MEDS ORDERED: VANCOMYCIN HCL 1,000 MG, VIAL MATE ADAPTER 1 EACH in D5W 250 ML IV SCH (22:00)
[2016-10-16] MEDS: NYSTATIN 100,000 UNITS/GM TOPICAL PWD 15 GM TOP SCH ×2 (07:39→20:31)
[2016-10-16] MEDS: MORPHINE SULF IN 0.9% NACL 100 MG in APPROPRIATE DILUENT 1 EA IV SCH ×4 (08:16→15:57)
--- NOTE | 2016-10-16 16:05 | EEG ---
DATE OF PROCEDURE: 10/14/2016 REFERRING PHYSICIAN: Dr. Edgardo Shay DIAGNOSIS: Seizure. EEG NUMBER: [id number] HISTORY: Patient is a 61-year-old woman with a history of mental retardation, dementia, Down syndrome, seizures, who was admitted at [facility] due to aspiration. This EEG was done to evaluate degree of encephalopathy and epileptic potential. She is intubated on mechanical ventilator. She is currently on Keppra, Lamictal, zonisamide, etc. It is unclear whether her propofol was stopped before her EEG or not. She was also on Versed. TECHNICAL DESCRIPTION: This digital EEG was recorded by 21 scalp, ear and two EKG electrodes and was reviewed in bipolar and referential montages following reformatting in 10-20 international electrode placement system. INTERPRETATION: The patient was noted to be in drowsy state during this EEG. Resting background rhythm consisted of low voltage 3-4 Hz delta activity measuring 10-20 microvolts in amplitude. Bilateral frontal triphasic waves were noted intermittently. No clear sleep stages were seen. Hyperventilation could not be performed. Photic stimulation remained unremarkable. EKG revealed normal sinus rhythm. No epileptiform abnormalities were seen. CONCLUSION: This EEG in an intubated and mechanically ventilated patient is abnormal due to presence of low voltage and generalized slowing and disorganization of background consistent with diffuse severe cerebral dysfunction such as seen in dementia and encephalopathy due to multiple potential causes. No epileptiform abnormalities were seen. Clinical correlation is recommended.
[2016-10-17] MEDS: MORPHINE SULF IN 0.9% NACL 100 MG in APPROPRIATE DILUENT 1 EA IV SCH ×4 (04:32→14:22)
[2016-10-17] MEDS: NYSTATIN 100,000 UNITS/GM TOPICAL PWD 15 GM TOP SCH ×2 (09:00→20:52)
[2016-10-17] MEDS: LORazepam 2 MG/ML VIAL (J2060) IV PRN ×2 (09:27→17:38)
[2016-10-17] MEDS ORDERED: MORPHINE SULF IN 0.9% NACL 100 MG in APPROPRIATE DILUENT 1 EA IV SCH ×2 (14:22)
--- NOTE | 2016-10-19 09:36 | DSES ---
DATE OF ADMISSION: 10/12/2016 DATE OF DISCHARGE: 10/17/2016 Danii is a 61-year-old female who had pneumonia, sepsis and desired limited interventions by her guardian. She had a trial of intubation, passed her spontaneous breathing trial however, after extubation could not handle her own secretions. She has had progressive failure to thrive along with progressive myoclonus. She was choking on food for months prior to coming into the hospital. The family had decided to make her comfort measures only and she passed on 10/17/2016. DISCHARGE DIAGNOSES: 1. Aspiration pneumonia. 2. Acute respiratory failure. 3. Seizure disorder active during this hospitalization with myoclonus. 4. Hypothyroidism. 5. Downs syndrome. 6. Failure to thrive. 7. Sepsis. 8. Severe protein calorie malnourishment MTDD
== END 2016-10-17 22:20 | disposition expired | DRG 208 ==
LOC: EDBD 07:52 → M ED 08:36 → M ED INP 09:10 → M ICU 10:26 → M MSPAV 10-15 15:45
PROVIDERS: ADMIT Internal Medicine Pulmonary Disease; ATTEND Internal Medicine Pulmonary Disease
PROC: 5A1945Z Respiratory Ventilation, 24-96 Consecutive Hours (ICD-10-PCS; principal; 2016-10-12)
DX: J96.01 Acute respiratory failure with hypoxia (principal); A41.9 Sepsis, unspecified organism; J69.0 Pneumonitis due to inhalation of food and vomit; E43 Unspecified severe protein-calorie malnutrition; E87.2 Acidosis; E87.0 Hyperosmolality and hypernatremia; G93.1 Anoxic brain damage, not elsewhere classified; G25.3 Myoclonus; Z51.5 Encounter for palliative care; G40.409 Other generalized epilepsy and epileptic syndromes, not intractable, without status epilepticus; Q90.9 Down syndrome, unspecified; E03.9 Hypothyroidism, unspecified; Z79.899 Other long term (current) drug therapy; Z88.8 Allergy status to other drugs, medicaments and biological substances